=== PATIENT | male | born 1950 | race Caucasian/White ===

== ENCOUNTER 2023-03-01 16:30 | Inpatient (IN) | payer MEDICARE ==
[2023-03-01] MEDS ORDERED: Sodium Chloride 0.9% 1,000 ML IV ONE (16:35)
[2023-03-01 16:46] LABS: BASOPHILS ABSOLUTE AUTO 0.03 K/uL (0.00-0.20); BASOPHILS PERCENT AUTO 0.5 % (0.0-2.0); EOSINOPHILS ABSOLUTE AUTO 0.02 K/uL (0.00-0.50); EOSINOPHILS PERCENT AUTO 0.3 % (0.0-5.0); HEMATOCRIT 42.8 % (39.0-49.0); HEMOGLOBIN 13.8 g/dL (13.1-16.8); LYMPHOCYTES ABSOLUTE AUTO 0.82 K/uL (0.50-3.50); LYMPHOCYTES PERCENT AUTO 12.8 % (10.0-50.0); MEAN CORPUSCULAR HEMOGLOBIN 26.7 pg (28.2-33.3); MEAN CORPUSCULAR HGB CONC 32.2 g/dL (31.7-36.0); MEAN CORPUSCULAR VOLUME 82.9 fL (84.0-98.0); MONOCYTES ABSOLUTE AUTO 0.86 K/uL (0.00-1.00); MONOCYTES PERCENT AUTO 13.4 % (2.0-14.0); NEUTROPHILS ABSOLUTE AUTO 4.68 K/uL (1.40-7.00); PLATELET COUNT,PLT 196 K/uL (150-350); RED BLOOD CELL COUNT 5.16 M/uL (4.33-5.41); RED CELL DISTRIBUTION WIDTH 14.8 % (11.2-14.1); WHITE BLOOD CELL COUNT,WBC 6.4 K/uL (4.0-10.2)
[2023-03-01 17:14] LABS: ALBUMIN 3.4 g/dL (3.4-5.0); BILIRUBIN TOTAL 0.7 mg/dL (0.2-1.0); CALCIUM 8.3 mg/dL (8.5-10.1); CREATININE 1.59 mg/dL (0.51-1.17); EST CRCL DRUG DOSING (CG) 38.69 mL/min; MAGNESIUM 1.7 mg/dL (1.8-2.4); POTASSIUM,K 3.5 mmol/L (3.5-5.1); PROTEIN TOTAL,TP 6.9 g/dL (6.4-8.2)
[2023-03-01 17:31] LABS: CORONAVIRUS COVID-19 NAA NEGATIVE (NEGATIVE); INFLUENZA A NAA POSITIVE (NEGATIVE); INFLUENZA B NAA NEGATIVE (NEGATIVE); RESPIRATORY SYNCYTIAL VIR NAA NEGATIVE (NEGATIVE)
[2023-03-01] MEDS ORDERED: Oseltamivir 30 MG Cap PO ONE (18:01)
[2023-03-01] MEDS ORDERED: Oseltamivir 75 MG Cap PO ONE (18:03)
[2023-03-01] MEDS ORDERED: Albuterol 6.7 GM Inhaler INH ONE (18:03)
[2023-03-01] MEDS: Sodium Chloride 0.9% 10 ML Syringe FLUSH PRN ×2 (18:19→21:38)
[2023-03-01 19:34] LABS: APPEARANCE,URINE CLEAR; BACTERIA,URINE RARE /HPF (NONE TO FEW); BILIRUBIN,URINE NEGATIVE (NEGATIVE); COLOR,URINE DARK YELLOW; EPITHELIAL CELLS,URINE RARE /LPF; GLUCOSE,URINE NEGATIVE (NEGATIVE); KETONES,URINE 15 mg/dL (NEGATIVE); LEUKOCYTE ESTERASE,URINE NEGATIVE (NEGATIVE); NITRITE,URINE NEGATIVE (NEGATIVE); OCCULT BLOOD,URINE NEGATIVE (NEGATIVE); PH,URINE 5.5 (5.0-9.0); PROTEIN,URINE 30 mg/dL (NEGATIVE); RBC,URINE 0-5 /HPF; UROBILINOGEN,URINE 0.2 E.U./dL (0.2-1.0); WBC,URINE 0-5 /HPF
[2023-03-01 19:36] LABS: HEMOGLOBIN A1C 6.2 % (4.3-5.7)
[2023-03-01] MEDS: Sodium Chloride 0.9% 1,000 ML IV SCH (19:36)
[2023-03-01] MEDS: methylPREDNISolone Sodium Succinate 40 MG/1 ML SDV IVPUSH SCH (19:36)
[2023-03-01] MEDS: Albuterol/Ipratropium 3.0-0.5 MG/3 ML Neb Soln NEB SCH (19:36)
[2023-03-01] MEDS ORDERED: Ondansetron 4 MG/2 ML SDV IVPUSH PRN (20:10)
[2023-03-01 20:16] LABS: PH ARTERIAL,POC 7.4 pH (7.35-7.45)
[2023-03-01 20:17] LABS: BASE EXCESS ARTERIAL,POC 1 mmol/L (-2-3); O2 SATURATION ARTERIAL,POC 92.4 % (95-98); PCO2 ARTERIAL,POC 37 mmHg (35-48); PO2 ARTERIAL,POC 62 mmHg (83-108); TCO2 ARTERIAL,POC 24.4 mmol/L (23-27)
[2023-03-01] MEDS ORDERED: Pantoprazole 40 MG Vial IV SCH (21:15)
[2023-03-01] MEDS: Acetaminophen 325 MG Tab PO SCH (21:39)
[2023-03-02] MEDS: Albuterol/Ipratropium 3.0-0.5 MG/3 ML Neb Soln NEB SCH ×6 (02:07→19:11)
[2023-03-02] MEDS: Acetaminophen 325 MG Tab PO SCH ×3 (02:07→08:52)
[2023-03-02] MEDS: Sodium Chloride 0.9% 1,000 ML IV SCH (03:42)
[2023-03-02 07:39] LABS: BASOPHILS ABSOLUTE AUTO 0.01 K/uL (0.00-0.20); BASOPHILS PERCENT AUTO 0.2 % (0.0-2.0); HEMOGLOBIN 13.4 g/dL (13.1-16.8); LYMPHOCYTES ABSOLUTE AUTO 0.61 K/uL (0.50-3.50); LYMPHOCYTES PERCENT AUTO 9.7 % (10.0-50.0); MEAN CORPUSCULAR HEMOGLOBIN 26.7 pg (28.2-33.3); MEAN CORPUSCULAR HGB CONC 31.9 g/dL (31.7-36.0); MEAN CORPUSCULAR VOLUME 83.7 fL (84.0-98.0); MONOCYTES ABSOLUTE AUTO 0.32 K/uL (0.00-1.00); MONOCYTES PERCENT AUTO 5.1 % (2.0-14.0); NEUTROPHILS ABSOLUTE AUTO 5.38 K/uL (1.40-7.00); PLATELET COUNT,PLT 183 K/uL (150-350); RED BLOOD CELL COUNT 5.02 M/uL (4.33-5.41); RED CELL DISTRIBUTION WIDTH 14.6 % (11.2-14.1); WHITE BLOOD CELL COUNT,WBC 6.3 K/uL (4.0-10.2)
[2023-03-02 07:58] LABS: ANION GAP 9.3 meq/L (7-15); CALCIUM 7.9 mg/dL (8.5-10.1); CARBON DIOXIDE,CO2 26.7 mmol/L (21.0-32.0); CREATININE 1.16 mg/dL (0.51-1.17); EST CRCL DRUG DOSING (CG) 51.18 mL/min; POTASSIUM,K 3.8 mmol/L (3.5-5.1)
[2023-03-02] MEDS ORDERED: Pantoprazole 40 MG in Sodium Chloride 0.9% 100 ML IV SCH (08:00)
[2023-03-02] MEDS ORDERED: Clopidogrel 75 MG Tab PO SCH (08:00)
[2023-03-02] MEDS: hydrALAZINE 50 MG Tab PO SCH ×2 (08:46→17:24)
[2023-03-02] MEDS: Metoprolol Succinate 50 MG Tab.ER PO SCH ×2 (08:46→17:24)
[2023-03-02] MEDS: Potassium Chloride 10 MEQ Tab.ER PO SCH (08:47)
[2023-03-02] MEDS: Cholecalciferol (Vitamin D3) 5,000 UNIT Tab PO SCH (08:47)
[2023-03-02] MEDS: Hydrochlorothiazide 25 MG Tab PO SCH (08:47)
[2023-03-02] MEDS: Clopidogrel 75 MG Tab PO SCH (08:47)
[2023-03-02] MEDS: Furosemide 20 MG Tab PO SCH (08:47)
[2023-03-02] MEDS: Losartan 50 MG Tab PO SCH (08:48)
[2023-03-02] MEDS: Oseltamivir 30 MG Cap PO SCH ×2 (08:48→17:25)
[2023-03-02] MEDS: Famotidine 20 MG Tab PO SCH (08:48)
[2023-03-02] MEDS: methylPREDNISolone Sodium Succinate 40 MG/1 ML SDV IVPUSH SCH (08:55)
[2023-03-02 09:39] LABS: PCO2 ARTERIAL,POC 40 mmHg (35-48); PH ARTERIAL,POC 7.4 pH (7.35-7.45)
[2023-03-02 09:42] LABS: BASE EXCESS ARTERIAL,POC -1 mmol/L (-2-3); O2 SATURATION ARTERIAL,POC 88.6 % (95-98); PO2 ARTERIAL,POC 57 mmHg (83-108); TCO2 ARTERIAL,POC 23.5 mmol/L (23-27)
[2023-03-02] MEDS: Acetaminophen 650 MG Tab.ER PO SCH (16:20)
[2023-03-02] MEDS ORDERED: Sodium Chloride 0.9% 10 ML Syringe FLUSH PRN (17:16)
[2023-03-02] MEDS ORDERED: Saliva Substitute Oral Spray 120 ML Bottle MUCMEM PRN (19:19)
[2023-03-02] MEDS ORDERED: Aspirin 325 MG Tab.EC PO SCH (20:00)
[2023-03-02] MEDS ORDERED: Cetirizine 10 MG Tab PO SCH (20:00)
[2023-03-03] MEDS: Albuterol/Ipratropium 3.0-0.5 MG/3 ML Neb Soln NEB SCH ×4 (00:19→11:59)
[2023-03-03] MEDS: Acetaminophen 650 MG Tab.ER PO SCH ×2 (00:19→08:19)
[2023-03-03 07:04] VITALS: BP 198/99
[2023-03-03] MEDS: Metoprolol Succinate 50 MG Tab.ER PO SCH (08:17)
[2023-03-03] MEDS: Famotidine 20 MG Tab PO SCH (08:18)
[2023-03-03] MEDS: Losartan 50 MG Tab PO SCH (08:18)
[2023-03-03] MEDS: hydrALAZINE 50 MG Tab PO SCH (08:18)
[2023-03-03] MEDS: Hydrochlorothiazide 25 MG Tab PO SCH (08:18)
[2023-03-03] MEDS: Clopidogrel 75 MG Tab PO SCH (08:19)
[2023-03-03] MEDS: Cholecalciferol (Vitamin D3) 5,000 UNIT Tab PO SCH (08:19)
[2023-03-03] MEDS: methylPREDNISolone Sodium Succinate 40 MG/1 ML SDV IVPUSH SCH (08:19)
[2023-03-03] MEDS: Furosemide 20 MG Tab PO SCH (08:19)
[2023-03-03] MEDS: Potassium Chloride 10 MEQ Tab.ER PO SCH (08:20)
[2023-03-03 08:54] VITALS: PULSE 92
[2023-03-03] MEDS: Oseltamivir 30 MG Cap PO SCH (09:04)
== END 2023-03-03 12:53 | disposition home or self-care (01) | DRG 193 ==
LOC: LL.ED 16:30 → LL.MS 19:01
PROVIDERS: ADMIT Emergency Medicine; ATTEND Family Medicine
DX: J10.1 Influenza due to other identified influenza virus with other respiratory manifestations (principal); J96.01 Acute respiratory failure with hypoxia; I13.0 Hypertensive heart and chronic kidney disease with heart failure and stage 1 through stage 4 chronic kidney disease, or unspecified chronic kidney disease; E78.5 Hyperlipidemia, unspecified; G47.30 Sleep apnea, unspecified; I10 Essential (primary) hypertension; E66.9 Obesity, unspecified; M19.90 Unspecified osteoarthritis, unspecified site; K21.9 Gastro-esophageal reflux disease without esophagitis; Z66 Do not resuscitate; N18.9 Chronic kidney disease, unspecified; E83.42 Hypomagnesemia; Z20.822 Contact with and (suspected) exposure to COVID-19; Z68.41 Body mass index [BMI] 40.0-44.9, adult; I50.9 Heart failure, unspecified; E86.0 Dehydration; H91.90 Unspecified hearing loss, unspecified ear; Z88.5 Allergy status to narcotic agent; Z99.81 Dependence on supplemental oxygen; Z79.82 Long term (current) use of aspirin; Z79.899 Other long term (current) drug therapy; Z86.73 Personal history of transient ischemic attack (TIA), and cerebral infarction without residual deficits; Z91.041 Radiographic dye allergy status; Z88.8 Allergy status to other drugs, medicaments and biological substances; Z90.49 Acquired absence of other specified parts of digestive tract; Z98.890 Other specified postprocedural states; Z11.52 Encounter for screening for COVID-19
CPT/HCPCS: 0241U; 36415; 36600; 71045; 80048; 80053; 81001; 82803; 82947; 83036; 83605; 83735; 83880; 84484; 85025; 85379; 87040; 93005; 93010; 94640; 97161-GP; 97165-GO; 99223; 99233; 99238; A9270-GY; C9113; J2920; J3475; J3490; J7030; J7620-GY